=== PATIENT | male | born 1950 | race Caucasian/White ===

== ENCOUNTER 2023-05-03 08:37 | Emergency (ER) | payer MEDICARE, OTHER, SELFPAY ==
--- NOTE | ~2023-05-03 | XR_ITS ---
EXAMINATION: XR chest 1V portable DATE: 05/03/2023 09:37 INDICATION: Cough TECHNIQUE: frontal view of the chest was obtained. COMPARISON: None FINDINGS: Airspace opacities at the right lung base. No pulmonary edema, pleural effusion or pneumothorax. The cardiomediastinal silhouette is normal. Mild thoracic spondylosis. IMPRESSION: 1. Opacities at the right lung base which could represent pneumonia or atelectasis. Reviewed, dictated and finalized at location A. [employer] IMPRESSION: 1. Opacities at the right lung base which could represent pneumonia or atelecta sis.
[2023-05-03 08:39] VITALS: BP 147/76; PULSE 88; RESP 16; TEMP 36.6; O2SAT 99
[2023-05-03 08:50] VITALS: O2SAT 98
--- NOTE | 2023-05-03 09:25 | ED.URI ---
HPI - URI/Sore Throat General Chief Complaint: Upper Respiratory Infection Stated Complaint: cough Time Seen by Provider: 05/03/23 09:08 Source: patient and family Mode of arrival: ambulatory Limitations: no limitations History of Present Illness HPI Narrative: 72 years old white male came to the emergency room because of cold symptoms started 7-8 days ago, including coughing, runny nose, sore throat, nasal and postnasal discharge. Patient tested negative for COVID at home. His had similar symptoms 4 weeks ago. Currently is improving. Patient denies any fever, chills, chest pain or shortness of breath. Related Data Allergies Allergy/AdvReac Type Severity Reaction Status Date / Time Sulfa (Sulfonamide Allergy Dizziness Verified 05/03/23 08:49 Antibiotics) Review of Systems Review of Systems: All systems reviewed & are unremarkable except as noted in HPI and below Exam Narrative: General appearance: Well-developed, well-nourished Skin: Normal color Head: Normocephalic, nontraumatic Eyes: Clear conjunctiva ENT: Erythematous oropharynx Neck: Supple, nontender Chest and respiratory: Airway patent, no respiratory distress, no accessory muscle use Heart: Regular rate/rhythm Abdomen: Soft, nontender, no organomegaly, quiet bowel sounds Vascular: Normal peripheral pulses, normal capillary refill. Musculoskeletal: Normal range of motion, nontender back Neurologic: Alert and oriented ?3, [employer] is normal as tested, no gross motor deficit Course Vital Signs Vital signs: Vital Signs Temperature 36.6 C 05/03/23 08:39 Pulse Rate 88 05/03/23 08:39 Respiratory Rate 16 05/03/23 08:39 Blood Pressure 147/76 H 05/03/23 08:39 Pulse Oximetry 99 05/03/23 08:39 Oxygen Delivery Room Air 05/03/23 08:39 Temperature 36.6 C 05/03/23 08:39 Pulse Rate 88 05/03/23 08:39 Respiratory Rate 16 05/03/23 08:39 Blood Pressure 147/76 H 05/03/23 08:39 Pulse Oximetry 98 05/03/23 08:50 Oxygen Delivery Room Air 05/03/23 08:50 MDM - URI/Sore Throat MDM Narrative Medical decision making narrative: Patient had cold symptoms 8 days ago, currently complaining of sore throat and productive cough Vital signs on arrival are stable, physical examination as above Differential diagnosis include upper respiratory viral infection with possible secondary bacterial infection including bronchitis/pneumonia. Blood workup today showed no significant abnormalities, patient tested negative for COVID, flu and RSV, chest x-ray showed possible right lower lobe pneumonia versus atelectasis. My plan to discharge patient on Levaquin for 7 days just in case of pneumonia, benzonatate and prednisone. Differential Diagnosis Differential diagnosis: Likely upper respiratory infection, viral infection, bronchitis and other (pneumonia) Medical Records Attestation: I reviewed the patient's medical records. Lab Data Attestation: I reviewed the patient's lab results. 05/03/23 09:42 05/03/23 09:42 Labs: Lab Results 05/03/23 05/03/23 Range/Units 09:09 09:42 WBC 7.1 (4.5-10.0) K/mm3 RBC 5.02 (4.6-6.20) M/mm3 Hgb 14.6 (14.0-18.0) g/dL Hct 44.1 (42.0-52.0) % MCV 87.8 (80-100) fl MCH 29.1 (26-34) pg MCHC 33.1 (32-36) g/dl RDW 12.2 (11.5-14.5) % Plt Count 207 (150-375) k/mm3 MPV 8.7 (7.4-10.4) fl Immature Gran % (Auto) 1.3 H (0-0.5) % Neut % (Auto) 63.9 (45.5-73.1) % Lymph % (Auto) 18.3 (18.3-44.2) % [employer] % (Auto) 14.2 H (2.6-8.5) % Eos % (Auto) 1.3 (0-4.4) % Baso % (Auto) 1.0 (0.2-1.2) % Lymph # (Auto) 1.30 (0.9-3.2) K/mm3 [employer] # (Auto) 1.0 H
[2023-05-03 09:49] LABS: Basophils Absolute Auto 0.1 K/mm3 (0.0-0.1); Eosinophils Absolute Auto 0.1 K/mm3 (0-0.3); Eosinophils Percent Auto 1.3 % (0-4.4); Hematocrit 44.1 % (42.0-52.0); Hemoglobin 14.6 g/dL (14.0-18.0); Immature Granulocyte Absolute 0.09 K/mm3 (0.00-0.031); Immature Granulocyte Percent A 1.3 % (0-0.5); Lymphocytes Percent Auto 18.3 % (18.3-44.2); Mean Corpuscular HGB Conc 33.1 g/dl (32-36); Mean Corpuscular Hemoglobin 29.1 pg (26-34); Mean Corpuscular Volume 87.8 fl (80-100); Mean Platelet Volume 8.7 fl (7.4-10.4); Monocytes Percent Auto 14.2 % (2.6-8.5); Neutrophils Absolute Auto 4.6 K/mm3 (1.3-6.7); Neutrophils Percent Auto 63.9 % (45.5-73.1); Platelet Count Result 207 k/mm3 (150-375); Red Blood Count 5.02 M/mm3 (4.6-6.20); Red Cell Distribution Width 12.2 % (11.5-14.5); White Blood Count 7.1 K/mm3 (4.5-10.0)
[2023-05-03 09:50] LABS: Influenza A QL RT-PCR Negative (Negative); Influenza B QL RT-PCR Negative (Negative); RSV RNA, RT-PCR Negative (Negative); SARS-CoV-2 RNA PCR Negative (Negative)
[2023-05-03 09:58] LABS: Alanine Aminotransferase 25 U/L (6-50); Albumin Level 4.5 g/dL (3.5-5.1); Alkaline Phosphatase 94 U/L (38-126); Anion Gap 12 mmol/L (8-16); Aspartate Amino Transferase 29 U/L (17-59); Bilirubin,Total 1.1 mg/dL (0.2-1.3); Blood Urea Nitrogen 16 mg/dL (9-20); Calcium 9.4 mg/dL (8.4-10.2); Carbon Dioxide 23 mmol/L (22-30); Chloride 100 mmol/L (98-107); Estimated CRCL calculation 54 ml/min; Estimated Glomerular Filt Rate > 60; Glucose 114 mg/dL (65-110); Potassium 4.7 mmol/L (3.4-5.0); Sodium 135 mmol/L (137-145)
[2023-05-03 10:40] VITALS: RESP 16
== END 2023-05-03 10:40 | disposition home or self-care (01) ==
PROVIDERS: Emergency Provider Emergency Medicine
DX: J18.9 Pneumonia, unspecified organism (principal); J06.9 Acute upper respiratory infection, unspecified; Z20.822 Contact with and (suspected) exposure to COVID-19
CPT/HCPCS: 36415; 71045; 80053; 85025; 87637; 99283

== ENCOUNTER 2023-11-26 08:12 | Outpatient (CLI) | payer MEDICARE, OTHER, SELFPAY ==
--- NOTE | ~2023-11-26 | MR_ITS ---
EXAMINATION: MR shoulder LT wo con DATE: 11/26/2023 09:04 INDICATION: Left long head biceps tendon injury. Rotator cuff injury. Generalized left shoulder pain. TECHNIQUE: Magnetic resonance imaging (MRI) of the left shoulder was performed without intravenous co ntrast. Sequences included axial PD-weighted FS FSE, coronal oblique PD-weighted FS FSE, coronal obli que T2-weighted FS FSE, sagittal PD-weighted FS FSE, and sagittal T1-weighted SE. COMPARISON: None. FINDINGS: Coracoacromial arch: The acromion undersurface is flat in morphology (type I). The coracoacromial ligament is normal. 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 Rotator cuff: Moderate tendinopathy distal supraspinatus tendon without tear. The infraspinatus and teres minor ten dons are normal. Mild tendinopathy and a couple small linear longitudinal split tears extending up to 2 cm medially from the lesser tuberosity footplate of the subscapularis tendon. Normal rotator cuff muscle bulk and signal. Biceps tendon, glenoid labrum and glenohumeral cartilage: Long head of the biceps tendon is normal. Glenoid labrum is normal with normal shallow labral sulcus along the superior glenoid. Glenohumeral cartilage is normal. Fluid: Physiologic amount of fluid in the glenohumeral joint and biceps tendon sheath. No loose osteochondr al bodies. Small amount of fluid in the subacromial/subdeltoid bursa consistent with mild bursitis. Bones: Normal marrow signal with no edema, fracture or abnormal marrow replacing process. IMPRESSION: 1. Moderate supraspinatus tendinopathy without tear. 2. Mild subscapularis tendinopathy with a couple small longitudinal split tears extending along the i ntact fibers of the distal tendon. 3. Mild subacromial/subdeltoid bursitis. Reviewed, dictated and finalized at location A. IMPRESSION: 1. Moderate supraspinatus tendinopathy without tear. 2. Mild subscapularis tendinopathy with a couple small longitudinal split tears extending along the intact fibers of the distal tendon. 3. Mild subacromial/subdeltoid bursitis.
== END 2023-11-26 08:13 ==
DX: S46.112D Strain of muscle, fascia and tendon of long head of biceps, left arm, subsequent encounter (principal); S46.092D Other injury of muscle(s) and tendon(s) of the rotator cuff of left shoulder, subsequent encounter; X58.XXXD Exposure to other specified factors, subsequent encounter; M75.52 Bursitis of left shoulder
CPT/HCPCS: 73221